=== PATIENT | male | born 1985 | race Two or more races ===

== ENCOUNTER 2018-01-31 16:10 | Emergency (ER) | payer SELFPAY ==
[2018-01-31] MEDS ORDERED: chlordiazePOXIDE 25 MG CAP ONE (16:53)
[2018-01-31] MEDS ORDERED: chlordiazePOXIDE 25 MG CAP PO ONE (16:56)
--- NOTE | 2018-01-31 17:32 | EDPHY ---
H & P Time Seen by Provider: 01/31/18 16:19 HPI/ROS: CHIEF COMPLAINT: Anxiety and high blood pressure History by patient HISTORY OF PRESENT ILLNESS: 32-year-old man presents complaining of feeling depressed, anxious and stressed. Patient states that he has had this problem for quite some time but has never sought help before. He does admit to regular heavy drinking of at least 10 shots of hard alcohol a day when he gets off work. 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 He says he does not drink at work. He denies taking drink when he wakes up after sleeping. He has never tried to quit drinking. He denies hallucinations or tactile sensations. He denies other drug use. He says he has used methamphetamine once a couple years ago. He denies marijuana use. 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 He denies any specific incident today but states that this has been building for long time. He is depressed over not being able to see his son because of child support issues. He denies suicidality or homicidality. He has never had psychiatric care or detox in the past. He has no prior history of alcohol withdrawal. He does have a history of high blood pressure which she says was diagnosed several years ago and he was given medications for once but he never took again. He said that he can't feel when his blood pressure goes high. REVIEW OF SYSTEMS: As in HPI, and all other systems reviewed and are negative Smoking Status: Never smoked Physical Exam: General Appearance: Alert, tearful, anxious, shaky Head: normocephalic, atraumatic Eyes: Pupils equal and round, reactive to light, no pallor or injection. No nystagmus Mouth: Mucous membranes moist. Oropharynx clear Neck: No bony tenderness, full range of motion Respiratory: Normal, effort, lungs are clear to auscultation. No wheezes, rales or rhonchi. Cardiovascular: Slightly tachycardic, Regular rate and rhythm. S1, S2, no murmurs, gallops or rubs appreciated Gastrointestinal: Abdomen is soft and nontender, no masses, bowel sounds normal. Back: No CVA tenderness, no bony tenderness Neurological: Awake, alert and oriented x 3, cranial nerves 2-12 intact, no pronator drift, normal gait, mildly tremulous Skin: Warm and dry, no rashes. Musculoskeletal: No deformities or tenderness. Extremities: full range of motion, no edema, DP2+ bilat Psychiatric: Patient has normal affect, there is no agitation. Constitutional: Initial Vital Signs Temperature (C) 36.9 C 01/31/18 16:22 Heart Rate 99 01/31/18 16:22 Respiratory Rate 20 01/31/18 16:22 Blood Pressure 165/103 H 01/31/18 16:22 O2 Sat (%) 97 01/31/18 16:22 O2 Delivery Mode Room Air Allergies/Adverse Reactions: No Known Allergies Allergy (Unverified 01/31/18 16:19) Home Medications: Medication Instructions Recorded NK [No Known Home Meds] 01/31/18 MDM/Departure - MDM Medications Given: Discontinued Medications Chlordiazepoxide HCl (Librium) 25 mg PO EDNOW ONE Stop: 01/31/18 16:57 Last Admin: 01/31/18 16:59 Dose: 25 mg ED Course/Re-evaluation: 32-year-old man a history of heavy alcohol use presents feeling anxious and like his blood pressure is up. Patient is noted to have elevated blood pressure , mild tachycardia a mild tremor as well as very tearful and anxious. Patient appears to be in mild alcohol withdrawal. He was given a single dose of Librium. On re-evaluation he was feeling somewhat better and his tachycardia had resolved. He is interested in getting help for his depression, anxiety and to stop drinking. We discussed how these are related. Patient was given referrals for alcohol rehab and mental health. I discussed the dangers of alcohol dependence, but risks of alcohol withdrawal and the signs and symptoms to watch out for. Patient agrees he will call for help tomorrow. He appears to be in no immediate danger to himself or others there is no evidence of serious alcohol withdrawal. - Depart Disposition: Home, Routine, Self-Care Clinical Impression: Alcohol abuse with alcohol-induced anxiety disorder Depression Qualifiers: Depression Type: unspecified Qualified Code(s): F32.9 - Major depressive disorder, single episode, unspecified Condition: Fair Instructions: Alcohol Dependence (ED), Alcohol Use Disorder (ED) Additional Instructions: You were seen by Dr. Mera Judge today. Please seek help for your depression and anxiety and alcohol problem. Call [facility] as soon as possible to get seen for evaluation. Please also see other list of mental health and substance abuse resources. Stop drinking! It will kill you! Return for any worsening or new concerns. Referrals: NONE *PRIMARY CARE P,. [Primary Care Provider] - As per Instructions [facility] [Outside] - As per Instructions [facility] 24 [facility] [Outside] - As per Instructions
[2018-01-31 18:08] VITALS: BP 132/77
--- NOTE | 2018-01-31 18:22 | ASMTCMCOM ---
CM Note CM Note Notes: LISA received VM from Lázaro at [facility] regarding patient's request for further resources related to outpatient treatment for ETOH. Per Kajal' message, patient was provided information for the [facility] and P upon discharge from [facility]. Chart reviewed. Patient is currently uninsured but is employeed at [employer] and is waiting for his health insurance to become active. I have LM with patient and encouraged him to follow up with the [facility] if needed, reinforced that P crisis center is avaialble 10/09 by phone or walk-in. In addition, I encouraged patient to explore options for attending an AA or NA meeting for support. I also encouraged patient to explore his in network health care benefits as soon as possible and to establish a PCP. CM availble prn Date Signed: 01/31/2018 06:22 PM Electronically Signed By:Mayela Enciso RN
== END 2018-01-31 18:10 | disposition home or self-care (01) ==
LOC: CED 16:10
DX: F10.180 Alcohol abuse with alcohol-induced anxiety disorder (principal); F32.9 Major depressive disorder, single episode, unspecified